=== PATIENT | male | born 1965 | race Caucasian/White ===

== ENCOUNTER 2019-09-04 12:33 | Emergency (ER) | payer BC, OTHER ==
--- NOTE | 2019-09-04 13:00 | EDM.PDOC ---
ED HPI GENERAL MEDICAL PROBLEM - General Chief Complaint: Trauma Stated Complaint: HURT SHOULDER Time Seen by Provider: 09/04/19 12:34 Source of Information: Reports: Patient History Limitations: Reports: No Limitations - History of Present Illness INITIAL COMMENTS - FREE TEXT/NARRATIVE: HISTORY AND PHYSICAL: History of present illness: Patient is a 54 year old male who presents to the ED with c/o right shoulder pain after falling and slipping on the ice [employer]. He states he doesn't believe he hit his head, but is sure he didn't have any LOC. He does take aspirin daily. Denies any other extremity involvement or pain. Denies any systemic complaints. Review of systems: As per history of present illness and below otherwise all systems reviewed and negative. Past medical history: As per history of present illness and as reviewed below otherwise noncontributory. Surgical history: As per history of present illness and as reviewed below otherwise noncontributory. Social history: See social history for further information Family history: As per history of present illness and as reviewed below otherwise noncontributory. Physical exam: General: Well developed and well nourished 54 year old male. Alert and orientated. Nontoxic appearing and in no acute distress. VSS. HEENT: Atraumatic, normocephalic, pupils equal and reactive bilaterally, negative for conjunctival pallor or scleral icterus, mucous membranes moist, TMs normal bilaterally, throat clear, neck supple, nontender, trachea midline. No drooling or trismus noted. No meningeal signs. No hot potato voice noted. Lungs: Clear to auscultation, breath sounds equal bilaterally, chest nontender. Heart: S1S2, regular rate and rhythm without overt murmur Abdomen: Soft, nondistended, nontender. Negative for masses or hepatosplenomegaly. Negative for costovertebral tenderness. Pelvis: Stable nontender. C-spine/Back: No pinpoint vertebral tenderness upon palpation. No crepitus, step -offs or obvious deformities. Patient is ambulatory into the emergency room without difficulty or deficit. Able to rock back on heels and walk on toes. Denies any urinary or fecal incontinence. Denies any numbness, tingling or saddle paresthesia. Skin: Intact, warm, dry. No lesions or rashes noted. Extremities: Right shoulder pain with palpation along the shoulder girdle. He has limited ROM, but can reach across to touch left shoulder. Strong radial pulse, cap refill less than 3 seconds. Otherwise moves all other extremities per self without difficulty or deficits, negative for cords or calf pain. Neurovascular unremarkable. Neuro: Awake, alert, oriented. Cranial nerves II through XII unremarkable. Cerebellum unremarkable. Motor and sensory unremarkable throughout. Exam nonfocal. Notes: X-ray and CT head show no acute findings. Sling provided. Discussed follow up with orthopedics. Supportive care measures were reviewed and discussed. Voices understanding and is agreeable to plan of care. Denies any further questions or concerns at this time. Diagnostics: Head CT, Right Shoulder x-ray Therapeutics: Sling, Toradol IM Prescription: Tramadol (#15) Impression: Fall Right Shoulder Injury Plan: 1. Rest, ice, elevate the extremity as able. Please use the sling for comfort. 2. Tylenol and/or ibuprofen as needed for pain management. 3. Please follow-up with the orthopedic provider and/or your primary care provider in the next 1-2 days. Return to the ED as needed and as discussed Definitive disposition and diagnosis as appropriate pending reevaluation and review of above. right shoulder Pain Score (Numeric/FACES): 7 - Related Data Allergies Allergy/AdvReac Type Severity Reaction Status Date / Time cephalexin [From Keflex] Allergy Diarrhea Verified 09/04/19 12:38 Home Meds: Home Meds Aspirin 325 mg PO DAILY 09/04/19 [History] Multivitamin with Minerals [Multiple Vitamin] 1 each PO DAILY 09/04/19 [History] Past Medical History - Past Surgical History Musculoskeletal Surgical History: Reports: Shoulder Surgery Other Musculoskeletal Surgeries/Procedures:: bicep tear. facial reconstruction Social & Family History - Family History Family Medical History: Noncontributory - Tobacco Use Smoking Status *Q: Never Smoker - Recreational Drug Use Recreational Drug Use: No Review of Systems - Review of Systems Review Of Systems: Comprehensive ROS is negative, except as noted in HPI. ED EXAM, GENERAL - Physical Exam Exam: See Below (See dictation) Course - Vital Signs Last Recorded V/S: Last Vital Signs Temp 96.9 F 09/04/19 12:33 Pulse 81 09/04/19 12:33 Resp 16 09/04/19 12:33 BP 148/88 H 09/04/19 12:33 Pulse Ox 98 09/04/19 12:33 - Orders/Labs/Meds Orders: Active Orders 24 hr Category Date Time Status Head wo Cont [CT] Stat Exams 09/04/19 12:34 Taken Departure - Departure Time of Disposition: 13:26 Disposition: Home, Self-Care 01 Clinical Impression: Fall Qualifiers: Encounter type: initial encounter Qualified Code(s): W19.XXXA - Unspecified fall, initial encounter Right shoulder injury Qualifiers: Encounter type: initial encounter Qualified Code(s): S49.91XA - Unspecified injury of right shoulder and upper arm, initial encounter - Discharge Information Referrals: PCP,Unobtain [Primary Care Provider] - Forms: ED Department Discharge Additional Instructions: The following information is given to patients seen in the emergency department who are being discharged to home. This information is to outline your options for follow-up care. We provide all patients seen in our emergency department with a follow-up referral. The need for follow-up, as well as the timing and circumstances, are variable depending upon the specifics of your emergency department visit. If you don't have a primary care physician on staff, we will provide you with a referral. We always advise you to contact your personal physician following an emergency department visit to inform them of the circumstance of the visit and for follow-up with them and/or the need for any referrals to a consulting specialist. The emergency department will also refer you to a specialist when appropriate. This referral assures that you have the opportunity for follow-up care with a specialist. All of these measure are taken in an effort to provide you with optimal care, which includes your follow-up. Under all circumstances we always encourage you to contact your private physician who remains a resource for coordinating your care. When calling for follow-up care, please make the office aware that this follow-up is from your recent emergency room visit. If for any reason you are refused follow-up, please contact the [facility] Emergency Department at and asked to speak to the emergency department charge nurse. [facility] [address] [place] [id number] [address] 1. Rest, ice, elevate the extremity as able. Please use the sling for comfort. 2. Tylenol and/or ibuprofen as needed for pain management. 3. Please follow-up with the orthopedic provider and/or your primary care provider in the next 1-2 days. Return to the ED as needed and as discussed Sepsis Event Note - Evaluation Sepsis Screening Result: No Definite Risk - Focused Exam Vital Signs: Vital Signs Temp Pulse Resp BP Pulse Ox 09/04/19 12:33 96.9 F 81 16 148/88 H 98 Date Exam was Performed: 09/04/19 Time Exam was Performed: 13:25 - My Orders Last 24 Hours: My Active Orders 09/04/19 12:34 Head wo Cont [CT] Stat - Assessment/Plan Last 24 Hours: My Active Orders 09/04/19 12:34 Head wo Cont [CT] Stat
--- NOTE | 2019-09-04 13:16 | CR ---
EXAM DATE: 09/04/19 PATIENT'S AGE: 54 Right shoulder: Three views the right shoulder were obtained. Inferior spurring is noted within the acromioclavicular joint. Spurring is noted off the glenoid. No acute fracture, dislocation or other bony abnormality is seen. Impression: 1. Degenerative change as noted above. 2. Nothing acute is seen. Diagnostic code #2 This report was dictated in [place] Standard Time Report Signed by Proxy. KRIS
--- NOTE | 2019-09-04 13:35 | CT ---
INDICATION: Trauma. Patient on blood thinners. TECHNIQUE: CT head without contrast. COMPARISON: None. FINDINGS: CSF spaces: Within normal limits for age. Brain parenchyma and extra-axial spaces: The ayala-white differentiation is normal. No sign of mass, hemorrhage, or midline shift. No extra-axial fluid collection. Skull base and calvarium: The visualized paranasal sinuses and mastoid air cells demonstrate no acute or significant findings. The visualized orbits are grossly unremarkable. No skull fractures. IMPRESSION: Unremarkable noncontrast head CT. No sign of intracranial hemorrhage or other sign of injury. Please note that all CT scans at this facility use dose modulation, iterative reconstruction, and/or weight-based dosing when appropriate to reduce radiation dose to as low as reasonably achievable. Dictated by Errol Artis MD @ Sep 04 2019 1:28PM Signed by Dr. Errol Artis @ Sep 04 2019 1:33PM
== END 2019-09-04 13:47 | disposition home or self-care (01) ==
LOC: MW.ED 12:33
DX: S49.91XA Unspecified injury of right shoulder and upper arm, initial encounter (principal); Z79.82 Long term (current) use of aspirin; Z88.1 Allergy status to other antibiotic agents; W00.0XXA Fall on same level due to ice and snow, initial encounter
CPT/HCPCS: 70450; 70450-26; 73030-26-RT; 73030-RT; 99283; 99284-25

== ENCOUNTER 2021-02-09 13:24 | Emergency (ER) | payer OTHER, BC ==
[2021-02-09] MEDS ORDERED: Tetracaine HCl/PF 0.5% 4 ML Bottle EYEBOTH ONE (14:00)
[2021-02-09] MEDS ORDERED: Erythromycin Base 0.5% Ophth Oint 1 GM Tube EYEBOTH ONE (14:54)
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
== END 2021-02-09 15:16 | disposition home or self-care (01) ==
LOC: MW.ED 13:24
DX: T65.891A Toxic effect of other specified substances, accidental (unintentional), initial encounter (principal); T26.92XA Corrosion of left eye and adnexa, part unspecified, initial encounter; T26.91XA Corrosion of right eye and adnexa, part unspecified, initial encounter; Z88.1 Allergy status to other antibiotic agents; Y99.0 Civilian activity done for income or pay
CPT/HCPCS: 99283; A9270

== ENCOUNTER 2022-07-28 08:09 | Day surgery (SDC) | payer BC, OTHER ==
[~2022-07-28 08:09] MED LIST: Lactated Ringers 1,000 ML IV SCH
[2022-07-28] MEDS ORDERED: Propofol 200 MG/20 ML SDV ONE (09:35)
[2022-07-28] MEDS ORDERED: fentaNYL 100 MCG/2 ML SDV ONE (09:36)
== END 2022-07-28 10:55 | disposition home or self-care (01) ==
LOC: MW.SDS 08:09
PROVIDERS: ATTEND Surgery
DX: R19.5 Other fecal abnormalities (principal); Z98.890 Other specified postprocedural states; Z88.1 Allergy status to other antibiotic agents; Z88.8 Allergy status to other drugs, medicaments and biological substances; E66.9 Obesity, unspecified
CPT/HCPCS: 45380; J2704; J3010; J7120; 00812